=== PATIENT | male | born 1975 | race Caucasian/White ===

== ENCOUNTER → 2017-12-17 | Outpatient (CLI) | payer BC, OTHER | LOC: M RAD 07:29 | DX: R10.9 Unspecified abdominal pain (principal) | CPT/HCPCS: J2805 ==

== ENCOUNTER 2018-09-19 13:05 | Emergency (ER) | payer BC, OTHER ==
[~2018-09-19] VITALS: Ht 182.9 cm; Wt 104.5 kg
[2018-09-19] MEDS ORDERED: SUCR1TAB56 (13:10)
[2018-09-19] MEDS ORDERED: METO1TAB32 (13:10)
[2018-09-19] MEDS ORDERED: AMLO5TAB6 (13:10)
[2018-09-19 14:28] LABS: BASO # 0.1 10^3/uL (0.0-0.2); BASO % 1.1 % (0.0-1.0); EOS # 0.1 10^3/uL (0.0-0.50); EOS % 1.2 % (0.0-3.0); HEMOGLOBIN 14.8 g/dl (13.5-17.5); LYMPH # 1.5 10^3/uL (1.5-4.5); LYMPH % 20.3 % (24.0-44.0); MEAN CORPUSCULAR HGB CONC 34.4 g/dl (32.0-36.5); MEAN CORPUSCULAR VOLUME 87.2 fl (80.0-96.0); MONO # 0.5 10^3/uL (0.0-0.8); NEUTROPHILS # 5.2 10^3/uL (1.8-7.7); PLATELET COUNT, AUTOMATED 280 10^3/uL (150-450); RED BLOOD COUNT 4.93 10^6/uL (4.30-6.10); WHITE BLOOD COUNT 7.4 10^3/uL (4.0-10.0)
[2018-09-19 14:51] LABS: ALBUMIN 3.9 GM/DL (3.2-5.2); ALT/SGPT 35 U/L (12-78); AMYLASE 37 U/L (25-115); BILIRUBIN,DIRECT 0.1 MG/DL (0.0-0.2); BILIRUBIN,TOTAL 0.5 MG/DL (0.2-1.0); BLOOD UREA NITROGEN 10 MG/DL (7-18); CALCIUM LEVEL 8.5 MG/DL (8.5-10.1); CARBON DIOXIDE LEVEL 27 MEQ/L (21-32); CHLORIDE LEVEL 108 MEQ/L (98-107); CPK CREATINE PHOSPHOKINASE 126 U/L (39-308); CREATININE FOR GFR 1.07 MG/DL (0.70-1.30); GLOMERULAR FILTRATION RATE > 60.0 (>60); GLUCOSE, FASTING 93 MG/DL (70-100); LIPASE 128 U/L (73-393); MB/CK RELATIVE INDEX 0.79 (< OR =4); POTASSIUM SERUM 4.5 MEQ/L (3.5-5.1); SODIUM LEVEL 141 MEQ/L (136-145); TOTAL PROTEIN 6.9 GM/DL (6.4-8.2); TROPONIN I < 0.02 NG/ML (< 0.10)
[2018-09-19] MEDS ORDERED: ISOVUE-370 76% 100ML VIAL (Q9967) As Ordered ONE (15:10)
--- NOTE | 2018-09-19 16:01 | ECGEPIP ---
Stationary ECG Study [facility] - ED Test Date: 2018-09-19 Pat Name: SANDRINE IGLESIAS Department: Room: - Gender: M [employer]: : [id number] Requested By: Josué Faulkner Order Number: [id number] Reading MD: John Lechuga Measurements Intervals [place] Rate: 54 P: 59 KS: 163 QRS: 43 QRSD: 105 T: 5 QT: 422 QTc: 401 Interpretive Statements SINUS BRADYCARDIA Nonspecific ST-T wave abnormalities Electronically Signed On 09-19-2018 16:01:22 EDT by John Lechuga
--- NOTE | 2018-09-19 16:07 | REP ---
CT of the chest CT pulmonary angiography protocol for chest pain: There are no comparisons. There are no emboli in the pulmonary trunk or central pulmonary arteries. There are no emboli in the pulmonary lobe or segment branches. The there are no infiltrates. There are no pleural effusions. There is a left upper lobe calcified granuloma. There are calcified granulomas in the left hilus. There is no adenopathy. The thoracic aorta is unremarkable. Cardiac size is normal. There is no pericardial effusion. Impression: Essentially negative CT scan of the chest. There are calcified granulomas as described. No pulmonary emboli. No infiltrates or effusions. Electronically Signed by Gianluca Berger MD 09/19/2018 03:59 P
--- NOTE | 2018-09-19 16:11 | REP ---
CT of the abdomen and pelvis with IV contrast, without bowel contrast: There are no comparisons. The hepatic parenchyma is homogeneous. The gallbladder, pancreas and spleen are unremarkable. The adrenals, kidneys and abdominal aorta are unremarkable. There is a small fat-containing umbilical hernia. There is no bowel distension or obstruction. The mesentery is unremarkable. Pelvis: The bladder is unremarkable. There is no ascites or adenopathy. The pelvic bowel loops are unremarkable. The appendix is unremarkable. Impression: Small umbilical fat-containing hernia. Otherwise, essentially negative CT of the abdomen and no Electronically Signed by Gianluca Berger MD 09/19/2018 04:03 P
[2018-09-19 16:52] VITALS: BP 154/92
== END 2018-09-19 17:14 | disposition home or self-care (01) ==
LOC: M ED 13:05
DX: R07.89 Other chest pain (principal); M62.838 Other muscle spasm; R10.11 Right upper quadrant pain; K42.9 Umbilical hernia without obstruction or gangrene; I10 Essential (primary) hypertension; E78.5 Hyperlipidemia, unspecified; Z82.41 Family history of sudden cardiac death; Z88.0 Allergy status to penicillin; Z88.8 Allergy status to other drugs, medicaments and biological substances; Z79.899 Other long term (current) drug therapy
CPT/HCPCS: 71275; 74177; 80048; 80076; 82150; 82550; 82553; 83690; 84484; 85025; 93005; 93041; 99285; Q9967

== ENCOUNTER → 2024-09-24 | Outpatient (CLI) | payer BC, OTHER ==
[~2024-09-24] MED LIST: AMLO1TAB24; METO1TAB32; SUCR1TAB56
== END ==
LOC: M WUC 14:21
PROVIDERS: ATTEND Physician Assistant
DX: M54.2 Cervicalgia (principal)